=== PATIENT | female | born 1980 | race Hispanic/Latino ===

== ENCOUNTER 2020-07-08 01:43 | Inpatient (IN) | payer SELFPAY ==
[2020-07-08 02:15] VITALS: BMI 25.2
[2020-07-08] MEDS ORDERED: hydrALAZINE 20 MG/ML VIAL SLOW IVP PRN ×2 (02:34→04:25)
--- NOTE | 2020-07-08 02:43 | PDOC.FPROB ---
FMR OB H&P: HPI - History of Present Illness Chief Complaint: contractions Indentification: 39 yo at 39.6 wga History of Present Illness: Patient reports she started arlene last night. Contractions became more painful and frequent about every 5 min. Has been having pink-tinged discharge since last night as well. Denies LOF, gush of fluid. Endorses Fm. Primary Care Physician: Mikhail Fine FMR OB H&P: Current - Care : 4 Para: 2011 Gestational age: 39.6 Due date: 07/09/2020 Course/Complications: AMA, denies other problems - OB Labs Additional labs: No records here on file. 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 - Surgical History Sx History: denies - Social History Social History: denies smoking, drinking, drugs - Family History Family History: denies FMR OB H&P: Medications - Current Home Medications: Medication Instructions Recorded Confirmed Type Pnv No.95/Ferrous Fum/Folic AC 1 tab PO DAILY 07/08/20 07/08/20 History [ [place]] Allergies/Adverse Reactions: Allergies Allergy/AdvReac Type Severity Reaction Status Date / Time No Known Allergies Allergy Verified 07/08/20 02:00 FMR OB H&P: ROS - Review of Systems General: denies: fever/chills, fatigue Eyes: denies: vision changes ENT: denies: nasal congestion, sore throat Cardiovascular: denies: chest pain Respiratory: denies: cough, shortness of breath Gastrointestinal: denies: abdominal pain, nausea, vomiting Genitourinary (Female): reports: vaginal discharge, contractions, vaginal pressure. denies: dysuria, vaginal bleeding Musculoskeletal: denies: swelling Neurologic: denies: weakness, headache Integumentary: denies: itching, rash Hematologic/Lymphatic: denies: prolonged or excessive bleeding Psychological: denies: depression, anxiety FMR OB H&P: Vital Signs - Maternal Vital signs: BP 114/69 HR 67 Temp 98.5 F - Heart Tones Baseline: 120 Variability: moderate Acceleration: present Deceleration: absent Category: category 1 [place] contractions every: 3-5 min FMR OB H&P: Physical Exam - Physical Exam General: NAD, awake, alert and oriented HEENT: normocephalic and atraumatic, no scleral icterus, grossly normal vision, grossly normal hearing Heart: RRR, normal S1/S2, no murmurs/rubs/gallops General: CTAB, no respiratory distress Abdomen: soft, gravid Neurological: no focal deficit Skin: no rash Lymphatic: no unusual bruising or bleeding Psychiatric: intact recent and remote memory, normal mood and affect - Pelvic Exam SVE: /-3 per RN Membranes: intact Estimated Weight: 6 lbs FMR OB H&P: A/P Discussion: Date/Time: 07/08/20 0241 39 yo at 39.6 wga Contractions Labor rule out - onset of painful regular contractions - /-3, progressed to 6 - admit AMA - not taking ASA This H&P was discussed with Dr. Fowler, who agree with the above documentation and plan. Signature: Gino Alegria MD PGY2
[2020-07-08] MEDS ORDERED: Ibuprofen 800 MG TAB PO PRN (04:25)
[2020-07-08] MEDS ORDERED: Ondansetron PF 4 MG/2 ML Vial IVP PRN (04:25)
[2020-07-08] MEDS ORDERED: Acetaminophen 500 MG TAB PO PRN (04:25)
[2020-07-08] MEDS ORDERED: Carboprost 250 MCG/ML AMP IM PRN (04:25)
[2020-07-08] MEDS ORDERED: Promethazine HCl 25 MG/ML VIAL IM PRN (04:25)
[2020-07-08] MEDS ORDERED: Butorphanol Tartrate 1 MG/ML VIAL SLOW IVP PRN (04:25)
[2020-07-08] MEDS ORDERED: Misoprostol 200 MCG TAB PR PRN (04:25)
[2020-07-08] MEDS ORDERED: Lidocaine 1% (PF) 30 ML VIAL SC PRN (04:25)
[2020-07-08] MEDS ORDERED: NS / Oxytocin 40 units/1000ml 1,000 ML IV PRN (04:25)
[2020-07-08] MEDS ORDERED: Docusate 100 MG CAP PO PRN (04:25)
[2020-07-08] MEDS ORDERED: Methylergonovine 0.2 MG/ML VIAL IM PRN (04:25)
[2020-07-08] MEDS ORDERED: Lactated Ringer's 1,000 ML IV SCH (04:30)
[2020-07-08 05:31] LABS: Hemoglobin 12.2 g/dL (12.0-16.0); Mean Corpuscular HGB CONC 33.2 g/dL (32.0-36.0); Mean Corpuscular Hemoglobin 29.9 pg (27.0-31.0); Platelet Count 277 thou/uL (130-400); RBC Distribution Width 11.8 % (11.5-14.5); Red Blood Cell (RBC) Count 4.08 mill/uL (4.20-5.40)
[2020-07-08 06:06] LABS: HBSAg Index 0.19 S/CO (0-0.99); Hep B Surf Ag Non-Reactive S/CO (NonReactive); Syphilis Antibody Nonreactive (Nonreactive); Syphilis Antibody Index 0.08 S/CO (<1.00 Non-Reactive)
--- NOTE | 2020-07-08 06:08 | PDOC.LDPN ---
Labor & Delivery Progress Note - Subjective Subjective: vaginal pressure - Objective Vital signs reviewed and normal: yes General: breathing through contractions Uterine fundus: non tender Effacement: 90% Station: 0 FHT: category 1, variability present AROM: clear fluid - Assessment (1) Active labor at term Code(s): [id number] - Current Visit: Yes Status: Acute (2) AMA (advanced maternal age) multigravida 35+ Code(s): O09.529 - SUPERVISION OF ELDERLY MULTIGRAVIDA, UNSPECIFIED TRIMESTER Current Visit: Yes Status: Acute Qualifiers: Trimester: third trimester Qualified Code(s): O09.523 - Supervision of elderly multigravida, third trimester Plan: continue plan of care (Spontaneous labor, doing well, plans no epidural, excellent control. No h/o macrosomia, rapid last labor.)
[2020-07-08] MEDS ORDERED: NS w/ Oxytocin 30 units 500 ML ONE (06:20)
--- NOTE | 2020-07-08 07:18 | PDOC.LDPN ---
Labor & Delivery Progress Note - Subjective Subjective: vaginal pressure - Objective Vital signs reviewed and normal: yes General: breathing through contractions Uterine fundus: non tender Dilation: 7 Effacement: 100% Station: 1+ FHT: category 1 - Assessment (1) Active labor at term Code(s): [id number] - Current Visit: Yes Status: Acute (2) AMA (advanced maternal age) multigravida 35+ Code(s): O09.529 - SUPERVISION OF ELDERLY MULTIGRAVIDA, UNSPECIFIED TRIMESTER Current Visit: Yes Status: Acute Qualifiers: Trimester: third trimester Qualified Code(s): O09.523 - Supervision of elderly multigravida, third trimester Plan: labor augmentation (ucs every 5-7 min)
[2020-07-08] MEDS: NS w/ Oxytocin 30 units 500 ML IVPB SCH ×2 (07:24→10:18)
[2020-07-08 08:34] LABS: SARS-CoV-2 PCR by NAA Not Detected (NotDetected)
--- NOTE | 2020-07-08 09:25 | PDOC.LDPN ---
Labor & Delivery Progress Note - Subjective Subjective: vaginal pressure - Objective Vital signs reviewed and normal: yes General: breathing through contractions Uterine fundus: non tender Dilation: 9 Effacement: 100% Station: 2+ FHT: category 1 (Pit at 6 mU/min, prog well with excellent control. Some fatigue. ) - Assessment (1) Active labor at term Code(s): [id number] - Current Visit: Yes Status: Acute (2) AMA (advanced maternal age) multigravida 35+ Code(s): O09.529 - SUPERVISION OF ELDERLY MULTIGRAVIDA, UNSPECIFIED TRIMESTER Current Visit: Yes Status: Acute Qualifiers: Trimester: third trimester Qualified Code(s): O09.523 - Supervision of elderly multigravida, third trimester
--- NOTE | 2020-07-08 10:04 | PDOC.OPDEL ---
OB Operative/Delivery Note Delivery Dr/Surgeon: Haroon Matta Pre-Delivery Diagnosis: active labor Procedure/Post Delivery Dx: spontaneous vaginal delivery Anesthesia: none - Additional Findings/Plan Placenta delivered: spontaneous Repaired Obstetrical Laceration: 1st degree Estimated blood loss: 150 Post delivery plan: routine recovery
[2020-07-08] MEDS ORDERED: Lanolin Ointment 7 GM TUBE TOP PRN (10:58)
[2020-07-08] MEDS ORDERED: Acetaminophen/Codeine 30-300mg Tablet PO PRN (10:58)
[2020-07-08] MEDS ORDERED: Bisacodyl 10 MG SUPP PR PRN (10:58)
[2020-07-08] MEDS ORDERED: Benzocaine-Menthol 82.5 ML CAN TOP PRN (10:58)
[2020-07-08] MEDS ORDERED: HYDROcodone/Acetaminophen 5/325 mg Tablet PO PRN (10:58)
[2020-07-08] MEDS ORDERED: Milk Of Magnesia 30 ML UDCUP PO PRN (10:58)
[2020-07-08] MEDS ORDERED: NS w/ Oxytocin 30 units 500 ML IVPB SCH (11:15)
[2020-07-08] MEDS: Ferrous Sulfate 325 MG TAB PO SCH (14:02)
[2020-07-08] MEDS: Ibuprofen 800 MG TAB PO SCH ×2 (14:02→21:10)
[2020-07-08] MEDS: Docusate Calcium (SURFAK) 240 MG CAP PO SCH (21:10)
--- NOTE | 2020-07-09 05:44 | PDOC.PP ---
Post Progress Note Subjective: o complaints PO intake tolerated: yes Flatus: yes Ambulation: yes Vital Signs (12 hours) Pulse Ox 07/08/20 20:00 100 Weight Weight 62.596 kg - Physical Examination Abdominal: lochia (normal) Result Diagrams: 07/08/20 05:10 Additional Labs: Post Labs Hep Bs Antigen Non-Reactive S/CO (NonReactive) 07/08/20 05:10 Blood Type A POSITIVE 07/08/20 06:07 (1) Term delivered Code(s): O80 - ENCOUNTER FOR FULL-TERM UNCOMPLICATED DELIVERY Status: Acute - Assessment/Plan Discharge home
[2020-07-09] MEDS: Ibuprofen 800 MG TAB PO SCH ×2 (06:50→13:50)
[2020-07-09] MEDS: Ferrous Sulfate 325 MG TAB PO SCH (06:57)
[2020-07-09 08:08] VITALS: BP 100/61; TEMP 97.8
[2020-07-09] MEDS: Docusate Calcium (SURFAK) 240 MG CAP PO SCH (08:26)
[2020-07-09] MEDS ORDERED: Prenatal Vitamin 1 TAB PO SCH (09:00)
[2020-07-09] MEDS ORDERED: Adacel (T-DAP) 0.5 ML SYRINGE IM ONE (09:00)
== END 2020-07-09 14:10 | disposition home or self-care (01) | DRG 807 ==
LOC: L&D/OP 01:43 → L&D 04:25 → 3SW 13:41
PROVIDERS: ADMIT Obstetrics & Gynecology; ATTEND Obstetrics & Gynecology
PROC: 10E0XZZ Delivery of Products of Conception, External Approach (ICD-10-PCS; principal; 2020-07-08)
PROC: 10907ZC Drainage of Amniotic Fluid, Therapeutic from Products of Conception, Via Natural or Artificial Opening (ICD-10-PCS; 2020-07-08)
PROC: 3E033VJ Introduction of Other Hormone into Peripheral Vein, Percutaneous Approach (ICD-10-PCS; 2020-07-08)
PROC: 3E0P7VZ Introduction of Hormone into Female Reproductive, Via Natural or Artificial Opening (ICD-10-PCS; 2020-07-08)
DX: O70.0 First degree perineal laceration during delivery (principal); Z37.0 Single live birth; Z20.822 Contact with and (suspected) exposure to COVID-19; Z3A.39 39 weeks gestation of pregnancy
CPT/HCPCS: 36415; 85027; 86780; 86850; 86900; 86901; 87340; 87635; J2001; J2405; J2590; U0003; U0005

== ENCOUNTER 2021-07-19 09:24 | Observation (INO) | payer SELFPAY ==
[2021-07-19 10:17] LABS: #Eosinphils 0.1 thou/uL (0.0-0.7); #Lymphocytes 1.3 thou/uL (1.20-3.40); #Monocytes 0.2 thou/uL (0.11-0.59); #Neutrophils 1.3 thou/uL (1.40-6.50); %Basophils 1.1 % (0.0-1.0); %Eosinophils 3.4 % (0.0-10.0); %Lymphocytes 43.7 % (21.0-51.0); %Monocytes 7.4 % (0.0-10.0); %Neutrophils 44.3 % (42.0-75.0); Mean Corpuscular HGB CONC 31.4 g/dL (32.0-36.0); Mean Corpuscular Hemoglobin 30.2 pg (27.0-31.0); Mean Platelet Volume 7.8 fL (7.4-10.4); Platelet Count 337 thou/uL (130-400); RBC Distribution Width 11.4 % (11.5-14.5); Red Blood Cell (RBC) Count 3.98 mill/uL (4.20-5.40); White Blood Cell (WBC) Count 2.9 thou/uL (4.8-10.8)
[2021-07-19 10:39] LABS: ALT (SGPT) 560 U/L (8-55); AST (SGOT) 264 U/L (5-34); Albumin 4.2 g/dL (3.5-5.0); Alkaline Phosphatase 700 U/L (40-110); Anion Gap 15 mmol/L (10-20); BUN (Urea Nitrogen) 8 mg/dL (7.0-18.7); Bilirubin, Total 1.4 mg/dL (0.2-1.2); Calc. Creatinine Clearance 0 mL/min (70-130); Calcium 9.4 mg/dL (7.8-10.44); Carbon Dioxide 22 mmol/L (22-29); Chloride 105 mmol/L (98-107); Globulin 3.3 g/dL (2.4-3.5); Glucose 79 mg/dL (70-105); Lipase 52 U/L (8-78); Potassium 3.9 mmol/L (3.5-5.1); Protein, Total 7.5 g/dL (6.0-8.3); Sodium 138 mmol/L (136-145)
[2021-07-19] MEDS ORDERED: Piperacillin/Tazobactam 3.375 GM VIAL ONE (11:19)
[2021-07-19] MEDS ORDERED: Acetaminophen 325 MG TAB PO PRN (12:33)
[2021-07-19] MEDS ORDERED: Ondansetron PF 4 MG/2 ML Vial IVP PRN (12:33)
[2021-07-19] MEDS ORDERED: Guaifenesin DM 100-10/5 ML UDCUP PO PRN (12:33)
[2021-07-19] MEDS ORDERED: Senokot S 8.6-50 MG TAB PO PRN (12:33)
[2021-07-19] MEDS ORDERED: Morphine 2 MG/ML VIAL SLOW IVP PRN (12:40)
[2021-07-19 14:12] LABS: SARS-CoV-2 NAA Rapid Test Not Detected (NotDetected)
[2021-07-19] MEDS ORDERED: Indomethacin 50 MG SUPP ONE (14:12)
[2021-07-19] MEDS ORDERED: Fentanyl 250 MCG/5 ML VIAL ONE ×2 (14:34→14:35)
[2021-07-19] MEDS ORDERED: Dexamethasone 20 MG/5 ML VIAL ONE (14:37)
[2021-07-19] MEDS ORDERED: PROPOFOL 200 MG/20 ML VIAL ONE (14:37)
[2021-07-19] MEDS ORDERED: Lidocaine 1% PF 5 ML VIAL ONE (14:37)
[2021-07-19] MEDS ORDERED: Ondansetron PF 4 MG/2 ML Vial ONE (14:37)
[2021-07-19] MEDS ORDERED: GLYCOPYRROLATE/PF 0.2 MG/ML VIAL ONE (14:37)
[2021-07-19] MEDS ORDERED: Rocuronium Bromide 10 MG/ML (10ML VIAL) ONE (14:37)
[2021-07-19] MEDS ORDERED: ePHEDrine 50 MG/ML VIAL ONE (14:37)
[2021-07-19] MEDS ORDERED: Iothalamate Meglumine 60% 50 ML VIAL FS ONE (15:03)
[2021-07-19 18:15] VITALS: BMI 20.7
[2021-07-19] MEDS: Sodium Chloride 0.9% 1,000 ML IV SCH (18:28)
[2021-07-19] MEDS: Famotidine/PF 20 mg/2ml Vial SLOW IVP SCH (20:37)
[2021-07-20 05:43] LABS: #Lymphocytes 0.9 thou/uL (1.20-3.40); #Monocytes 0.2 thou/uL (0.11-0.59); #Neutrophils 2.3 thou/uL (1.40-6.50); %Basophils 0.5 % (0.0-1.0); %Eosinophils 0.6 % (0.0-10.0); %Monocytes 6.8 % (0.0-10.0); %Neutrophils 66.1 % (42.0-75.0); Mean Corpuscular HGB CONC 32.2 g/dL (32.0-36.0); Mean Corpuscular Hemoglobin 31.2 pg (27.0-31.0); Mean Corpuscular Volume 96.9 fL (78.0-98.0); Mean Platelet Volume 7.8 fL (7.4-10.4); Platelet Count 341 thou/uL (130-400); RBC Distribution Width 11.2 % (11.5-14.5); Red Blood Cell (RBC) Count 3.52 mill/uL (4.20-5.40); White Blood Cell (WBC) Count 3.5 thou/uL (4.8-10.8)
[2021-07-20 06:05] LABS: ALT (SGPT) 383 U/L (8-55); AST (SGOT) 103 U/L (5-34); Albumin 3.8 g/dL (3.5-5.0); Alkaline Phosphatase 534 U/L (40-110); Anion Gap 14 mmol/L (10-20); BUN (Urea Nitrogen) 14 mg/dL (7.0-18.7); Bilirubin, Total 1.2 mg/dL (0.2-1.2); Calc. Creatinine Clearance 75 mL/min (70-130); Calcium 8.9 mg/dL (7.8-10.44); Carbon Dioxide 18 mmol/L (22-29); Chloride 106 mmol/L (98-107); Globulin 2.8 g/dL (2.4-3.5); Glucose 78 mg/dL (70-105); Potassium 4.2 mmol/L (3.5-5.1); Protein, Total 6.6 g/dL (6.0-8.3); Sodium 134 mmol/L (136-145)
[2021-07-20] MEDS ORDERED: Iothalamate Meglumine 60% 50 ML VIAL FS ONE (07:17)
[2021-07-20] MEDS ORDERED: Bupivacaine PF 0.5% 30 ML VIAL ONE (07:17)
[2021-07-20] MEDS ORDERED: Lidocaine 2% w/ Epi 1:200K 10 ML VIAL ONE (07:17)
[2021-07-20] MEDS ORDERED: Sodium Chloride 0.9% 20 ML ONE (07:17)
[2021-07-20] MEDS ORDERED: Ioversol 68 % 50 ML VIAL ONE (07:19)
[2021-07-20] MEDS ORDERED: Fentanyl 250 MCG/5 ML VIAL ONE (07:36)
[2021-07-20] MEDS ORDERED: Promethazine HCl 25 MG/ML VIAL ONE (07:37)
[2021-07-20] MEDS: Famotidine/PF 20 mg/2ml Vial SLOW IVP SCH (07:46)
[2021-07-20] MEDS ORDERED: ceFAZolin 2 GM/DEX 5% 100 ML BAG ONE (07:58)
[2021-07-20] MEDS ORDERED: Ketorolac Tromethamine 10 MG TAB ONE (08:10)
[2021-07-20] MEDS ORDERED: GLYCOPYRROLATE/PF 0.2 MG/ML VIAL ONE (08:10)
[2021-07-20] MEDS ORDERED: ePHEDrine 50 MG/ML VIAL ONE (08:10)
[2021-07-20] MEDS ORDERED: Lidocaine 1% PF 5 ML VIAL ONE (08:10)
[2021-07-20] MEDS ORDERED: Dexamethasone 20 MG/5 ML VIAL ONE (08:10)
[2021-07-20] MEDS ORDERED: Ondansetron PF 4 MG/2 ML Vial ONE (08:10)
[2021-07-20] MEDS ORDERED: PROPOFOL 200 MG/20 ML VIAL ONE (08:10)
[2021-07-20] MEDS ORDERED: Rocuronium Bromide 10 MG/ML (10ML VIAL) ONE (08:10)
[2021-07-20] MEDS ORDERED: FLU VACC QS2021-22(6MOS UP)/PF 60 MCG/0.5 ML SYRINGE IM ONE (09:00)
[2021-07-20] MEDS ORDERED: Enoxaparin Sodium 40 MG/0.4 ML SYRINGE SC SCH (09:00)
[2021-07-20] MEDS: Sodium Chloride 0.9% 1,000 ML IV SCH ×2 (11:55→11:56)
[2021-07-20 19:24] VITALS: BP 109/72; TEMP 98
== END 2021-07-20 18:50 | disposition home or self-care (01) ==
LOC: ERS 09:24 → T4-B 12:33
PROVIDERS: ADMIT Hospitalist; ATTEND Family Medicine
PROC: 0F798ZZ Dilation of Common Bile Duct, Via Natural or Artificial Opening Endoscopic (ICD-10-PCS; principal; 2021-07-19)
PROC: 0FC98ZZ Extirpation of Matter from Common Bile Duct, Via Natural or Artificial Opening Endoscopic (ICD-10-PCS; 2021-07-19)
PROC: 0FT44ZZ Resection of Gallbladder, Percutaneous Endoscopic Approach (ICD-10-PCS; 2021-07-20)
PROC: BF101ZZ Fluoroscopy of Bile Ducts using Low Osmolar Contrast (ICD-10-PCS; 2021-07-20)
DX: K80.67 Calculus of gallbladder and bile duct with acute and chronic cholecystitis with obstruction (principal); D72.819 Decreased white blood cell count, unspecified; Z20.822 Contact with and (suspected) exposure to COVID-19
CPT/HCPCS: 36415; 47532; 74330; 76705; 80053; 83690; 85025; 88304; 96365; 96375; C1713; G0378; J1100; J2405; J2543; J2550; J2704; J3010; J3490; J7050; Q9961-U8; Q9967; S0020; S0028; U0002